=== PATIENT | male | born 1960 | race Caucasian/White ===

== ENCOUNTER 2018-10-20 20:51 | Emergency (ER) | payer BC, SELFPAY ==
[2018-10-20 20:53] VITALS: BP 152/86; PULSE 73; RESP 16; TEMP 36.6; O2SAT 97; BMI 38.4
--- NOTE | 2018-10-20 21:06 | ED.VISSUMM ---
- ER Visit Summary Date of Service: 10/20/18 Chief Complaint: Dental pain, headache History of Present Illness: The patient is a 58 M presents to the emergency department with dental pain and headache. The patient has a history of stroke. He was actually seen and evaluated at [facility] today. He was diagnosed with a dental abscess. He was started on penicillin. He states he actually had an injection which seemed to help with the pain. The patient underwent CAT scan and EKG which she was told was normal. He presents here tonight because he states the pain is persisted. He denies any fevers or chills. He denies any visual change, increasing numbness, or other neurologic symptoms. Physical Examination: Exam is relatively unremarkable. Is a well-appearing male no acute distress. Examination oral mucosa demonstrates a periapical abscess of tooth #4. There is marked tenderness to palpation. He does have some localized facial swelling. He has no Sebastien angina. He has no trismus or stridor. Neck is supple. Test Results: [] Emergency Department Course and Treatment: The patient has persistent dental abscess. I have no suspicion for stroke or other dangerous symptoms. I do feel that his headache is all referred pain from his infection. The patient will be started on Augmentin. He is given his first dose here. I will also give a short course of analgesics. I did review his [place] automated prescription reporting was unremarkable. Patient will be discharged home. Treatment Plan: [] Disposition: Discharge Impression: Periapical abscess tooth four This note was generated with [employer] dictation software. It may contain incorrect words, spelling, and punctuation that were not noted in review of the chart prior to signing ED Disposition - Plan for ED Patient: Chief Complaint: Dental Instructions: ED Abscess Dental Prescriptions: Oxycodone HCl/Acetaminophen [Percocet 5/325] 1 tab PO Q6H PRN PRN 3 Days #8 tab PRN Reason: Pain Amox/Clavulanate Tablet [Augmentin Tablet] 875 mg PO Q12H #20 tab Referrals: Alejandra Cedillo MD [Primary Care Provider] -
--- NOTE | 2018-10-20 21:09 | ED.DCSUM_ITS ---
- ER Visit Summary Date of Service: 10/20/18 Chief Complaint: Dental pain, headache History of Present Illness: The patient is a 58 M presents to the emergency department with dental pain and headache. The patient has a history of stroke. He was actually seen and evaluated at [facility] today. He was diagnosed with a dental abscess. He was started on penicillin. He states he actually had an injection which seemed to help with the pain. The patient underwent CAT scan and EKG which she was told was normal. He presents here tonight because he states the pain is persisted. He denies any fevers or chills. He denies any visual change, increasing numbness, or other neurologic symptoms. Physical Examination: Exam is relatively unremarkable. Is a well-appearing male no acute distress. Examination oral mucosa demonstrates a periapical abscess of tooth #4. There is marked tenderness to palpation. He does have some localized facial swelling. He has no Sebastien angina. He has no trismus or stridor. Neck is supple. Test Results: [] Emergency Department Course and Treatment: The patient has persistent dental abscess. I have no suspicion for stroke or other dangerous symptoms. I do feel that his headache is all referred pain from his infection. The patient will be started on Augmentin. He is given his first dose here. I will also give a short course of analgesics. I did review his [place] automated prescription reporting was unremarkable. Patient will be discharged home. Treatment Plan: [] Disposition: Discharge Impression: Periapical abscess tooth four This note was generated with [employer] dictation software. It may contain incorrect words, spelling, and punctuation that were not noted in review of the chart p rior to signing ED Disposition - Plan for ED Patient: Chief Complaint: Dental Instructions: ED Abscess Dental Prescriptions: Oxycodone HCl/Acetaminophen [Percocet 5/325] 1 tab PO Q6H PRN PRN 3 Days #8 tab PRN Reason: Pain Amox/Clavulanate Tablet [Augmentin Tablet] 875 mg PO Q12H #20 tab Referrals: Alejandra Cedillo MD [Primary Care Provider] -
[2018-10-20] MEDS: Amox/Clavulanate 875 MG Tablet PO (21:25)
--- NOTE | 2018-10-20 21:26 | NURSING ---
NORCO THP GIVEN. UNABLE TO SCAN IN ROOM. 4 TABS.
== END 2018-10-20 21:29 | disposition home or self-care (01) ==
PROVIDERS: Emergency Provider Emergency Medicine
DX: K04.7 Periapical abscess without sinus (principal); E11.9 Type 2 diabetes mellitus without complications; I10 Essential (primary) hypertension; Z86.73 Personal history of transient ischemic attack (TIA), and cerebral infarction without residual deficits
CPT/HCPCS: 99283